=== PATIENT | male | born 1965 | race Caucasian/White ===

== ENCOUNTER 2025-03-25 10:15 | Day surgery (SDC) | payer OTHER ==
[~2025-03-25 10:15] MED LIST: ATOR20TA PO; BUPIVACAINE HCL/PF 0.25% 30 ML VIAL ONE; RINGERS SOLUTION,LACTATED 1,000 ML IV ONE
[2025-03-25] MEDS ORDERED: MORPHINE SULFATE/PF 0.5 MG/ML 10 ML AMP IVP ONE (10:16)
[2025-03-25] MEDS: RINGERS SOLUTION,LACTATED 1,000 ML IV ONE (11:13)
[2025-03-25] MEDS: ETHYL ALCOHOL 62% ANTISEPTIC NASAL SANITIZER 0.6 ML AMPUL NASAL ONE (11:14)
[2025-03-25] MEDS: CHLORHEXIDINE GLUCONATE 2% TOWELETTE [2'S/6'S] TP ONE (11:14)
[2025-03-25] MEDS ORDERED: PROPOFOL 1% 20 ML VIAL IVP ONE (12:00)
[2025-03-25] MEDS ORDERED: FentaNYL CITRATE PF 100 MCG/2 ML VIAL IVP ONE (12:00)
[2025-03-25] MEDS ORDERED: MIDAZOLAM HCL 2 MG/2 ML VIAL IVP ONE (12:00)
[2025-03-25] MEDS ORDERED: 0.9% SODIUM CHLORIDE 10 ML VIAL ONE (12:00)
[2025-03-25] MEDS ORDERED: DEXAMETHASONE SOD PHOS 4 MG/ML VIAL ONE (12:00)
[2025-03-25] MEDS ORDERED: LIDOCAINE/PF 2% 5 ML VIAL ONE (12:00)
[2025-03-25] MEDS ORDERED: ONDANSETRON HCL 4 MG/2 ML VIAL ONE (12:00)
[2025-03-25] MEDS ORDERED: FentaNYL CITRATE PF 100 MCG/2 ML VIAL IVP PRN (13:00)
[2025-03-25] MEDS ORDERED: MEPERIDINE-PF 25 MG/ML VIAL IVP PRN (13:00)
[2025-03-25] MEDS ORDERED: RINGERS SOLUTION,LACTATED 1,000 ML IV ONE (13:04)
[2025-03-25] MEDS: BUPIVACAINE LIPOSOME/PF 1.3%-13.3MG/ML SUSP 20 ML VIAL INJ ONE (13:21)
[2025-03-25] MEDS ORDERED: OxyCODONE HCL/ACETAMINOPHEN 5-325 MG TABLET ONE (14:18)
[2025-03-25] MEDS: OxyCODONE HCL/ACETAMINOPHEN 5-325 MG TABLET PO ONE (15:10)
[2025-03-25] MEDS ORDERED: OXYGEN THERAPY IH SCH (20:00)
== END 2025-03-25 14:55 | disposition home or self-care (01) ==
LOC: SURGERY 10:15
PROVIDERS: ATTEND Specialist
DX: S83.241A Other tear of medial meniscus, current injury, right knee, initial encounter (principal); S83.281A Other tear of lateral meniscus, current injury, right knee, initial encounter; E78.5 Hyperlipidemia, unspecified; X58.XXXA Exposure to other specified factors, initial encounter; Y93.89 Activity, other specified; Y92.89 Other specified places as the place of occurrence of the external cause; Y99.8 Other external cause status
CPT/HCPCS: 29879; 29880; J0666; J3490 ×2; J2704; J0690; J1100; J3010; J2250; J2274; J2405; J7120; J1171